=== PATIENT | female | born 1960 | race Two or more races ===

== ENCOUNTER 2025-01-31 09:45 | Day surgery (SDC) | payer MEDICAID ==
[~2025-01-31] VITALS: Ht 152.4 cm; Wt 71.7 kg
[~2025-01-31 09:45] MED LIST: ASPI81CH74 PO; ATOR10TA PO; LISI20TA56 PO; MAGN241.4 PO; METF-372 PO; METO25TA93 PO
[2025-01-31] MEDS ORDERED: LIDOCAINE 2% (LOCAL ANESTH.) PF 5ml SDV ONE (11:35)
[2025-01-31] MEDS ORDERED: PROPOFOL 10 MG/ML 20 ML IV ONE ×2 (11:35→11:45)
[2025-01-31 12:02] VITALS: PULSE 71; RESP 20; TEMP 97.8; O2SAT 97
--- NOTE | 2025-01-31 12:03 | DVHHP2 ---
GI H&P Pre-Op Assessment Date: 01/31/25 Chief complaint: colon cancer screening, abdominal pain, heartburn HPI: per clinic note Past medical history: per clinic note Past surgical history: per clinic note Family history: per clinic note Physical exam: General: NAD, AAOX3 HEENT: PERRL, no scleral icterus, normal hearing, gums without lesions or bleeding, oropharynx clear without erythema or exudate. Neck: Supple without enlargement of the thyroid, or lymphadenopathy. Chest: Normal size and shape, no tenderness, lung house clear to auscultation and percussion, nonlabored breathing. Heart: RRR, no murmur Abdomen: non-distended, no tenderness to palpation, +BS, no hepatosplenomegaly Extremities: no edema Neurological: CN II-XII intact, sensation intact in all extremities, 5+ strength in all extremities Skin: No rashes, No jaundice Assessment: - colon cancer screening - abdominal pain, heartburn Plan: - EGD - Colonoscopy - Risks (bleeding, infection, perforation, reaction to sedation medications and cardiopulmonary arrest) and benefit of the procedure were explained to patient. Patient agrees to undergo the procedure. GLADYS ONEIL MD Jan 31, 2025 12:03
--- NOTE | 2025-01-31 12:04 | DVHOP2 ---
Operative Report DATE OF OPERATION: 01/31/25 PROCEDURE: Upper Endoscopy. PREOPERATIVE INDICATION: The patient is a 64 -year-old female undergoing endoscopy for epigastric pain and heartburn. POSTOPERATIVE DIAGNOSES: 1. Mild gastritis. PROCEDURE PERFORMED BY: Pepito Hall SCOPE: Olympus videoendoscope. ASA CLASS: 3 PREOPERATIVE MEDICATIONS: MAC with Harsha CATALAN PROCEDURE IN DETAIL: After obtaining an informed consent, the patient was placed on her back. The patient was then sedated y Harsha CATALAN. A bite block was placed between her teeth. The endoscope was then passed through the oropharynx, into the esophagus, and through the stomach and pylorus up to the second and third part of the duodenum. The duodenum was normal in appearance. There was mild gastritis. Gastric biopsies were obtained using cold forceps. The GE junction was normal in appearance at 31 cm. The esophagus was normal in appearance. The endoscope was then withdrawn. The patient tolerated the procedure well without difficulty. COMPLICATIONS : None SPECIMENS: Gastric biopsies DISPOSITION: D/C to home PLAN: 1. Await for biopsy result 2. Continue with omeprazole. PEPITO HALL MD Jan 31, 2025 12:04
--- NOTE | 2025-01-31 12:06 | DVHOP2 ---
Operative Report DATE OF OPERATION: 01/31/25 PROCEDURE: Colonoscopy. PREOPERATIVE INDICATION: The patient is a 64 -year-old female undergoing colonoscopy for colon cancer screening. POSTOPERATIVE DIAGNOSES: 1. A 4 mm rectal polyp was removed with hot snare and retrieved. 2. Few small diverticulosis in the left colon. 3. Internal hemorrhoids. PROCEDURE PERFORMED BY: Pepito Hall M.D. SCOPE: Olympus videocolonoscope. ASA CLASS: 3 PREOPERATIVE MEDICATIONS: MAC with Harsha CATALAN PROCEDURE IN DETAIL: After obtaining an informed consent, the patient was placed on left lateral decubitus position. She was then sedated by Harsha CATALAN. A rectal examination was performed that was normal. The colonoscope was then passed through the anus into the rectosigmoid and through the descending, transverse, and ascending colon up to the cecum with visualization of the appendiceal orifice, base of the cecum and the ileocecal valve. A 4 mm rectal polyp was removed with hot snare and retrieved. There was a few small diverticulosis in the left colon. There were internal hemorrhoids. The colonoscope was then withdrawn. The patient tolerated the procedure well without difficulty. WITHDRAWAL TIME: 7 minutes QUALITY OF THE PREP: Viola Bowel Prep score: 6 COMPLICATIONS : None SPECIMENS: Colon polyp DISPOSITION: D/C to home PLAN: 1. Repeat colonoscopy base on biopsy result PEPITO HALL MD Jan 31, 2025 12:06
--- NOTE | 2025-01-31 12:06 | DVHDS2 ---
Physician Discharge Progress N Final Diagnosis: Mild gastritis Colon polyp, diverticulosis, internal hemorrhoids Operations or Procedures: Operations or Procedures EGD with cold biopsy Colonoscopy with hot snare polypectomy. Condition on Discharge: Good Disposition: Home Discharge Instructions: Diet: Regular Activity: No Restrictions, As Tolerated Medications: Resume previous home medications Follow Up Care: Discharge Statement: "Patient was advised to return to the ER or call 911 if any headaches, dizziness, shortness of breath, chest pain, abdominal pain, bleeding, fevers, or worsening of medical condition. Patient was counseled about treatment plan, medications, possible side effects, patientverbalized understanding. All questions were answered to the best of my ability. This discharge took greater then 30 minutes in planning, reviewing documentation, counseling the patient, and discussing with other team members." GLADYS ONEIL MD Jan 31, 2025 12:06
[2025-01-31 12:47] VITALS: BP 123/65; PULSE 60; RESP 14; O2SAT 96
== END 2025-01-31 13:03 | disposition home or self-care (01) ==
LOC: GI 09:45
PROVIDERS: ATTEND Internal Medicine Gastroenterology
DX: Z12.11 Encounter for screening for malignant neoplasm of colon (principal); K62.1 Rectal polyp; K57.30 Diverticulosis of large intestine without perforation or abscess without bleeding; K64.8 Other hemorrhoids; K29.50 Unspecified chronic gastritis without bleeding; B96.81 Helicobacter pylori [H. pylori] as the cause of diseases classified elsewhere; K21.9 Gastro-esophageal reflux disease without esophagitis; R12 Heartburn; I10 Essential (primary) hypertension; E11.9 Type 2 diabetes mellitus without complications; E78.5 Hyperlipidemia, unspecified; E66.3 Overweight; Z68.30 Body mass index [BMI] 30.0-30.9, adult; Z79.82 Long term (current) use of aspirin; Z79.84 Long term (current) use of oral hypoglycemic drugs; Z79.899 Other long term (current) drug therapy; Z87.891 Personal history of nicotine dependence
CPT/HCPCS: 43239; 45385; 82962; 88305; 88342; J2003; J2704

== ENCOUNTER 2025-02-12 00:25 | Emergency (ER) | payer MEDICAID ==
[~2025-02-12] VITALS: Ht 152.4 cm; Wt 69.6 kg
[2025-02-12 00:45] VITALS: BP 152/88; PULSE 66; RESP 16; TEMP 97.8; O2SAT 97
[2025-02-12] MEDS ORDERED: SODIUM CHLORIDE 0.9% 500 ML IVB ONE (01:15)
== END 2025-02-12 01:30 | disposition left against medical advice (07) ==
LOC: ER 00:25
DX: K62.5 Hemorrhage of anus and rectum (principal)